=== PATIENT | male | born 1985 ===

== ENCOUNTER 2017-08-25 12:08 | Emergency (ER) | payer MEDICAID ==
[2017-08-25 12:17] VITALS: BMI 28.2
[2017-08-25 12:19] VITALS: BP 129/87; PULSE 82; RESP 16; TEMP 98.5; O2SAT 100
--- NOTE | 2017-08-25 13:13 | ED PDOC ---
HPI: Back Time Seen by Provider: 08/25/17 12:51 Chief Complaint (Nursing): Back Pain Chief Complaint (Provider): lower back pain History Per: Patient History/Exam Limitations: no limitations Onset/Duration Of Symptoms: Days (x 4) Current Symptoms Are (Timing): Still Present Additional Complaint(s): Sylvester is a 32 y/o male who presents to the ED complaining of low back pain that started Wednesday night. Patient states that on Wednesday night, he got a sharp pain in his lower back that went away eventually, but when he woke up on Wednesday he couldn't get out of bed due to pain. He denies and injury or trauma. Also denies and numbness or tingling. Patient lifts objects at work but says he doesn 't lift anything over 30 lbs. He has been taking Tylenol for the pain. PMD: None Past Medical History Reviewed: Historical Data, Nursing Documentation, Vital Signs Vital Signs: Last Vital Signs Temp 98.5 F 08/25/17 12:15 Pulse 82 08/25/17 12:15 Resp 16 08/25/17 12:15 BP 129/87 08/25/17 12:15 Pulse Ox 100 08/25/17 12:15 - Medical History PMH: No Chronic Diseases Denies: Chronic Kidney Disease - Family History Family History: States: Unknown Family Hx - Immunization History Hx Tetanus Toxoid Vaccination: No Hx Influenza Vaccination: No Hx Pneumococcal Vaccination: No - Home Medications Home Medications: Ambulatory Orders Medication Instructions Recorded Cyclobenzaprine [Cyclobenzaprine 10 mg PO BID PRN #10 tab 05/19/16 HCl] Naproxen [Naprosyn] 500 mg PO Q12 PRN #20 tablet 05/19/16 oxyCODONE/Acetaminophen [Percocet 1 tab PO QID PRN #20 tab 05/20/16 5/325 mg Tab] Cyclobenzaprine [Flexeril] 10 mg PO TID #27 tab 08/25/17 Naproxen [Naprosyn] 500 mg PO BID #40 tablet 08/25/17 - Allergies Allergies/Adverse Reactions: Allergies Allergy/AdvReac Type Severity Reaction Status Date / Time No Known Allergies Allergy Verified 08/25/17 12:21 Review of Systems ROS Statement: Except As Marked, All Systems Reviewed And Found Negative Musculoskeletal: Positive for: Back Pain (lower) Neurological: Negative for: Numbness, Other (tingling) Physical Exam - Reviewed Nursing Documentation Reviewed: Yes Vital Signs Reviewed: Yes - Physical Exam Appears: Positive for: Well, Non-toxic, No Acute Distress Skin: Positive for: Normal Color, Warm, Dry Cardiovascular/Chest: Positive for: Regular Rate, Rhythm Respiratory: Positive for: Normal Breath Sounds Back: Positive for: Vertebral Tenderness (center line tenderness L4-L5) Extremity: Positive for: Normal ROM (knees and legs barely over 30 degrees) Neurologic/Psych: Positive for: Alert, Oriented. Negative for: Motor/Sensory Deficits - ECG O2 Sat by Pulse Oximetry: 100 (RA) Pulse Ox Interpretation: Normal - Other Rad BACK X-Ray: Interpreted by Me, Viewed By Me X-Ray Interpretation: Apparent misalignment at L5-L6 Medical Decision Making Medical Decision Making: Time: 13:06 Initial Impression: Low Back Pain Initial Plan: --XR Spine Entire 2-3 Views --Flexeril 10mg PO --Toradol 60mg IM --Tylenol 650mg PO Scribe Attestation: Documented by Brian Ritter acting as a scribe for Fausto Ty PA-C MD Scribe Attestation: All medical record entries made by the Scribe were at my direction and personally dictated by me. I have reviewed the chart and agree that the record accurately reflects my personal performance of the history, physical exam, medical decision making, and the department course for this patient. I have also personally directed, reviewed, and agree with the discharge instructions and disposition. Disposition - Clinical Impression Clinical Impression: Lower back pain, Back pain, Acute back pain, Musculoskeletal pain - Patient ED Disposition Is Patient to be Admitted: No Doctor Will See Patient In The: Office Counseled Patient/Family Regarding: Studies Performed, Diagnosis, Need For Followup, Rx Given - Disposition Referrals: Serg Rodriguez MD [Staff Provider] - Disposition: Routine/Home Disposition Time: 15:37 Condition: GOOD Prescriptions: Cyclobenzaprine [Flexeril] 10 mg PO TID #27 tab Naproxen [Naprosyn] 500 mg PO BID #40 tablet Forms: [employer] ([place])
--- NOTE | 2017-08-25 19:21 | RAD ---
PROCEDURE: Radiographs of the Lumbar Spine. HISTORY: CENTERLINE PAIN COMPARISON: Abdomen and pelvis CT examination 05/19/2016. FINDINGS: BONES: There is straightening of the lumbar curvature without fracture or spondylolisthesis identified. No destructive bony lesion identified. The lumbar vertebral body heights appear within normal limits though minimal anterior wedging of the T12 vertebral body representing chronic fracture as seen in prior and pelvis CT 05/19/2016. . Disc height loss at L4-5 and L5-S1 indicating degenerative disc disease. DISC SPACES: As above OTHER FINDINGS: None. IMPRESSION: Straightened lumbar curvature. Degenerative disc changes L4-5 and L5-S1. Chronic limited fracture T12, indeterminate age.
== END 2017-08-25 16:37 | disposition home or self-care (01) ==
LOC: H.ER 12:08
DX: M54.5 Low back pain (principal); M51.37 Other intervertebral disc degeneration, lumbosacral region
CPT/HCPCS: 72100; 96372; 99282; J1885

== ENCOUNTER 2018-02-12 13:16 | Emergency (ER) | payer SELFPAY ==
[2018-02-12 13:17] VITALS: BMI 28.2
[2018-02-12 13:45] VITALS: BP 131/69; PULSE 87; RESP 18; TEMP 98.2; O2SAT 97
--- NOTE | 2018-02-12 14:29 | ED PDOC ---
HPI: General Adult Time Seen by Provider: 02/12/18 13:46 Chief Complaint (Nursing): Abdominal Pain Chief Complaint (Provider): Groin Pain History Per: Patient History/Exam Limitations: no limitations Onset/Duration Of Symptoms: Days (x14) Current Symptoms Are (Timing): Still Present Additional Complaint(s): Sylvester Keith is a 32 year old male with no past medical history who is presenting to the ED for evaluation of left groin pain radiating to the testicle, onset 2 weeks ago. Patient states that pain has not worsened but the persistence of pain prompted his ED visit. He reports that pain worsens with movement, sneezing, and lifting objects. He states that the pain, when present, is a 9/10 and reports taking Tylenol with no relief of symptoms. Patient denies taking any medications today and also denies any fevers, chills, nausea, vomiting, diarrhea, urinary symptoms, back pain, flank pain, cough, shortness or breath, or penile discharge. PMD: none provided Past Medical History Reviewed: Historical Data, Nursing Documentation, Vital Signs Vital Signs: Last Vital Signs Temp 98.2 F 02/12/18 13:42 Pulse 87 02/12/18 13:42 Resp 18 02/12/18 13:42 BP 131/69 02/12/18 13:42 Pulse Ox 97 02/12/18 13:42 - Medical History PMH: No Chronic Diseases - Surgical History Surgical History: No Surg Hx - Family History Family History: States: Unknown Family Hx - Social History Current smoker - smoking cessation education provided: Yes Alcohol: Social Drugs: Denies - Home Medications Home Medications: Ambulatory Orders Medication Instructions Recorded Cyclobenzaprine [Cyclobenzaprine 10 mg PO BID PRN #10 tab 05/19/16 HCl] RX: Naproxen [Naprosyn] 500 mg PO Q12 PRN #20 tablet 05/19/16 oxyCODONE/Acetaminophen [Percocet 1 tab PO QID PRN #20 tab 05/20/16 5/325 mg Tab] Naproxen [Naprosyn] 500 mg PO BID #40 tablet 08/25/17 RX: Cyclobenzaprine [Flexeril] 10 mg PO TID #27 tab 08/25/17 Cephalexin [Keflex] 500 mg PO TID #21 capsule 09/29/18 RX: Ibuprofen [Motrin Tab] 800 mg PO Q8 PRN #21 tab 02/12/18 Sulfamethoxazole/Trimethoprim 1 tab PO BID #14 tab 02/12/18 [Bactrim DS 800 mg-160 mg] - Allergies Allergies/Adverse Reactions: Allergies Allergy/AdvReac Type Severity Reaction Status Date / Time No Known Allergies Allergy Verified 08/25/17 12:21 Review of Systems ROS Statement: Except As Marked, All Systems Reviewed And Found Negative Constitutional: Negative for: Fever, Chills Respiratory: Negative for: Cough, Shortness of Breath Gastrointestinal: Negative for: Nausea, Vomiting, Diarrhea Genitourinary Male: Positive for: Other (groin pain). Negative for: Dysuria, Frequency, Incontinence, Hematuria, Penile Discharge Musculoskeletal: Negative for: Back Pain, Other (flank pain) Physical Exam - Reviewed Nursing Documentation Reviewed: Yes Vital Signs Reviewed: Yes - Physical Exam Comments: GENERAL APPEARANCE: Patient is awake, alert, oriented x 3, in no acute distress distress. SKIN: Warm, dry; (-) cyanosis. ENMT: Mucous membranes moist. Airway patent, (-) stridor. NECK: Supple, FROM CHEST AND RESPIRATORY: (-) rales, (-) rhonchi, (-) wheezes; breath sounds equal bilaterally. Respirations even and nonlabored, speaking in full sentences. HEART AND CARDIOVASCULAR: (-) irregularity ABDOMEN AND GI: Soft, bowel sounds active x4 (-) distention. (-) tenderness. (-) guarding, (-) rebound, (-) CVA tenderness. EXTREMITIES: (-) deformity MALE GENITOURINARY: (+) circumcised male, (+) normal external genitalia, (+) diffuse tenderness to left lower groin and lateral aspect of left testicle, (+) Faint erythema to the lateral left testicle, (+) 1 cm X 1 cm area of induration to left groin fold immediately next to left side of scrotum, (-) penile discharge, (-) rash or ulcers. Right testicle nontender. (-) scrotal swelling. Pump Tender: Nurse Tatum NEURO AND PSYCH: Mental status as above; (-) focal findings (-) facial asymmetry (-) aphasia. Gait: steady. Speech: clear. - Laboratory Results Result Diagrams: 02/12/18 14:26 02/12/18 14:26 Urine dip results: Negative for: Leukocyte Esterase, Blood, Nitrate, Ketones, Glucose, Bilirubin, Protein - ECG O2 Sat by Pulse Oximetry: 97 (RA) Pulse Ox Interpretation: Normal Medical Decision Making Medical Decision Making: Time: 14:15 Impression: Acute groin and testicular pain Plan: --CMP --ED Urine Dipstick --CBC --Chlamydia/GC RNA, TMA --Toradol 30 mg IVP --Ultrasound Testes --CT abd/pel with IV contrast 1440 Udip reviewed and unremarkable. 1515 Labs reviewed and grossly unremarkable. [address] Abd/Pelvis: FINDINGS: LOWER THORAX: Bibasilar atelectasis. Heart size normal. No focal consolidation or pleural effusion. LIVER: Mild hepatic steatosis. No gross lesion or ductal dilatation. GALLBLADDER AND BILE DUCTS: Unremarkable. PANCREAS: Unremarkable. No gross lesion or ductal dilatation. SPLEEN: Unremarkable. ADRENALS: Unremarkable. No mass. KIDNEYS AND URETERS: Unremarkable. No hydronephrosis. No solid mass. VASCULATURE: Unremarkable. No aortic aneurysm. BOWEL: Unremarkable. No obstruction. No gross mural thickening. APPENDIX: Normal appendix. PERITONEUM: Very small fat containing right inguinal hernia. No free fluid. No free air. LYMPH NODES: Unremarkable. No enlarged lymph nodes. BLADDER: Unremarkable. REPRODUCTIVE: Unremarkable. BONES: No acute fracture. OTHER FINDINGS: None. IMPRESSION: Very small fat containing right inguinal hernia. No acute abdominal pelvic pathology. 1705 Testicular Ultrasound: FINDINGS: RIGHT TESTICLE: Measures 4.0 x 2.4 x 1.8 cm. Normal echotexture and flow. RIGHT EPIDIDYMIS: Epididymal head measures 1.0 x 0.9 x 1.0 cm. Grossly unremarkable appearance with normal flow. LEFT TESTICLE: Measures 4.2 x 2.2 x 1.8 cm. Normal echotexture and flow. LEFT EPIDIDYMIS: Epididymal head measures 0.8 x 0.8 x 0.6 cm. Grossly unremarkable appearance with normal flow. HYDROCELE: None. VARICOCELE: None. OTHER FINDINGS: In the palpable area on the left, there is a nonspecific hypoechoic 2.2 x 0.5 x 1.3 cm nonvascular area. IMPRESSION: No evidence of testicular torsion. In the palpable area in the left, there is a nonspecific avascular hypoechoic area measuring 2.2 x 0.5 x 1.3 cm. Due to suspicion of possible early abscess/cellulitis, Keflex and Bactrim PO ordered. 1730 On re-evaluation, patient reports improvement of symptoms. On exam, patient remains AAOx3, in no acute distress. Lungs clear to auscultation, cardiac RRR, abdomen soft, non-tender, repeat neuro exam shows no focal findings. Vitals stable. Lab/Diagnostic results d/w the patient in great detail. Diagnosis of groin pain, possible early abscess d/w the patient. Based on history, exam and diagnostic results, plan will be for outpatient follow up. Advised to return to ED in two days if symptoms do no improve. Patient instructed to follow-up with pmd / referral provided / the clinic in 1- 2 days without fail. Advised to take medication as prescribed. Return to the emergency room at any time for any new or worsening symptoms. Patient states he fully agrees with and understands discharge instructions. States that he agrees with the plan and disposition. Verbalized and repeated discharge instructions and plan. I have given the patient opportunity to ask any additional questions. Scribe Attestation: Documented by Nadia Espinoza, acting as a scribe for Anny Soto PA-C. Provider Scribe Attestation: All medical record entries made by the Scribe were at my direction and personally dictated by me. I have reviewed the chart and agree that the record accurately reflects my personal performance of the history, physical exam, medical decision making, and the department course for this patient. I have also personally directed, reviewed, and agree with the discharge instructions and disposition. Disposition - Clinical Impression Clinical Impression: Groin pain, Abscess of groin - Patient ED Disposition Is Patient to be Admitted: No Counseled Patient/Family Regarding: Studies Performed, Diagnosis, Need For Followup, Rx Given - Disposition Referrals: [facility] [Outside] Sam Coombs MD [Staff Provider] - Disposition: Routine/Home Disposition Time: 17:30 Condition: STABLE Additional Instructions: The emergency medical care you received today was directed at your acute symptoms. If you were prescribed any medication, please fill it and take as directed. It may take several days for your symptoms to resolve. Return to the Emergency Department if your symptoms worsen, do not improve, or if you have any other problems. Please contact your doctor in 2 days for re-evaluation and follow up / or call one of the physicians/clinics you have been referred to that are listed on the Patient Visit Information form that is included in your discharge packet. Bring any paperwork you were given at discharge with you along with any medications you are taking to your follow up visit. Our treatment cannot replace ongoing medical care by a primary care provider (PCP) outside of the emergency department. Prescriptions: Cephalexin [Keflex] 500 mg PO TID #21 capsule RX: Ibuprofen [Motrin Tab] 800 mg PO Q8 PRN #21 tab PRN Reason: Pain, Moderate (4-7) Sulfamethoxazole/Trimethoprim [Bactrim DS 800 mg-160 mg] 1 tab PO BID #14 tab Instructions: Cellulitis and Erysipelas (Skin Infections), Boil, Skin Abscess Forms: [employer] (Occitan), [facility] ED School/Work Excuse Print Language: ROMANIAN - POA Present On Arrival: None Results - Lab Results Lab Results: 02/12/18 02/12/18 14:26 14:26 WBC 9.7 RBC 4.26 L Hgb 13.6 Hct 39.8 MCV 93.4 MCH 31.9 H MCHC 34.2 RDW 13.3 Plt Count 239 MPV 8.2 Neut % (Auto) 79.0 H Lymph % (Auto) 12.1 L Williamson % (Auto) 8.2 Eos % (Auto) 0.5 Baso % (Auto) 0.2 Neut # (Auto) 7.7 H Lymph # (Auto) 1.2 Williamson # (Auto) 0.8 Eos # (Auto) 0.1 Baso # (Auto) 0.0 Sodium 141 Potassium 4.1 Chloride 103 Carbon Dioxide 29 Anion Gap 13 BUN 10 Creatinine 0.8 Est GFR ( Amer) > 60 Est GFR (Non-Af Amer) > 60 Random Glucose 103 Calcium 9.6 Total Bilirubin 0.4 AST 47 ALT 27 Alkaline Phosphatase 33 L Total Protein 8.2 Albumin 4.4 Globulin 3.8 Albumin/Globulin Ratio 1.2
[2018-02-12 15:01] LABS: BASO % 0.2 % (0.0-2.0); EOS # 0.1 K/uL (0.0-0.7); EOS % 0.5 % (0.0-4.0); HEMOGLOBIN 13.6 g/dL (12.0-18.0); LYMPH # 1.2 K/uL (1.0-4.3); LYMPH % 12.1 % (20.0-40.0); MEAN CELL VOLUME 93.4 fl (80.0-94.0); MEAN CORPUSCULAR HEMOGLOBIN 31.9 pg (27.0-31.0); MEAN CORPUSCULAR HGB CONC 34.2 g/dL (33.0-37.0); MEAN PLATELET VOLUME 8.2 fl (7.2-11.7); MONO # 0.8 K/uL (0.0-0.8); MONO % 8.2 % (0.0-10.0); NEUT # 7.7 K/uL (1.8-7.0); RBC 4.26 Mil/uL (4.40-5.90); RED CELL DISTRIBUTION WIDTH 13.3 % (11.5-14.5); WHITE BLOOD COUNT 9.7 K/uL (4.8-10.8)
[2018-02-12 15:08] LABS: ALB/GLOB RATIO 1.2 (1.0-2.1); ALBUMIN 4.4 g/dL (3.5-5.0); BLOOD UREA NITROGEN 10 mg/dl (9-20); CALCIUM 9.6 mg/dL (8.4-10.2); GFR NON-AFRICAN AMERICAN > 60
[2018-02-12 15:17] LABS: ALT/SGPT 27 U/L (21-72); AST/SGOT 47 U/L (17-59)
[2018-02-12] MEDS ORDERED: Iohexol 300 100 ML IJ ONE (15:40)
[2018-02-12] MEDS ORDERED: Sodium Chloride 0.9% 400 ML IV ONE (15:41)
--- NOTE | 2018-02-12 16:14 | CT ---
Date of service: 02/12/2018 PROCEDURE: CT Abdomen and Pelvis with contrast HISTORY: r/o hernia, groin pain COMPARISON: CT scan of the chest, abdomen and pelvis dated 05/19/2016. TECHNIQUE: Contrast dose: 95 mL Omnipaque 300 Radiation dose: Total exam DLP = 551.9 mGy-cm. This CT exam was performed using one or more of the following dose reduction techniques: Automated exposure control, adjustment of the mA and/or kV according to patient size, and/or use of iterative reconstruction technique. FINDINGS: LOWER THORAX: Bibasilar atelectasis. Heart size normal. No focal consolidation or pleural effusion. LIVER: Mild hepatic steatosis. No gross lesion or ductal dilatation. GALLBLADDER AND BILE DUCTS: Unremarkable. PANCREAS: Unremarkable. No gross lesion or ductal dilatation. SPLEEN: Unremarkable. ADRENALS: Unremarkable. No mass. KIDNEYS AND URETERS: Unremarkable. No hydronephrosis. No solid mass. VASCULATURE: Unremarkable. No aortic aneurysm. BOWEL: Unremarkable. No obstruction. No gross mural thickening. APPENDIX: Normal appendix. PERITONEUM: Very small fat containing right inguinal hernia. No free fluid. No free air. LYMPH NODES: Unremarkable. No enlarged lymph nodes. BLADDER: Unremarkable. REPRODUCTIVE: Unremarkable. BONES: No acute fracture. OTHER FINDINGS: None. IMPRESSION: Very small fat containing right inguinal hernia. No acute abdominal pelvic pathology.
--- NOTE | 2018-02-12 17:01 | US ---
Date of service: 02/12/2018 HISTORY: left groin/testicle pain TECHNIQUE: Realtime sonography through the scrotum with color and doppler flow. COMPARISON: None Available. FINDINGS: RIGHT TESTICLE: Measures 4.0 x 2.4 x 1.8 cm. Normal echotexture and flow. RIGHT EPIDIDYMIS: Epididymal head measures 1.0 x 0.9 x 1.0 cm. Grossly unremarkable appearance with normal flow. LEFT TESTICLE: Measures 4.2 x 2.2 x 1.8 cm. Normal echotexture and flow. LEFT EPIDIDYMIS: Epididymal head measures 0.8 x 0.8 x 0.6 cm. Grossly unremarkable appearance with normal flow. HYDROCELE: None. VARICOCELE: None. OTHER FINDINGS: In the palpable area on the left, there is a nonspecific hypoechoic 2.2 x 0.5 x 1.3 cm nonvascular area. IMPRESSION: No evidence of testicular torsion. In the palpable area in the left, there is a nonspecific avascular hypoechoic area measuring 2.2 x 0.5 x 1.3 cm.
[2018-02-12] MEDS ORDERED: Tmp-Smz 800 mg-160 mg DS Tab PO STA (17:08)
[2018-02-12] MEDS ORDERED: Tmp-Smz 800 mg-160 mg DS Tab ONE (17:16)
== END 2018-02-12 17:58 | disposition home or self-care (01) ==
LOC: H.ER 13:16
DX: L02.214 Cutaneous abscess of groin (principal); R10.30 Lower abdominal pain, unspecified; F17.200 Nicotine dependence, unspecified, uncomplicated
CPT/HCPCS: 74177; 80053; 85025; 87491; 87591; 93975; 96374; 99283; J1885; Q9967

== ENCOUNTER 2018-03-30 21:11 | Emergency (ER) | payer OTHER ==
[2018-03-30 21:12] VITALS: BMI 28.2
[2018-03-30 21:30] VITALS: BP 138/84; PULSE 85; RESP 17; TEMP 97.6; O2SAT 98
[2018-03-30] MEDS ORDERED: Tdap Vaccine 0.5 ml Vial (10-64 yrs) IM ONE ×2 (21:39→22:17)
--- NOTE | 2018-03-30 21:48 | ED PDOC ---
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 Notes he was able to remove the intact nail himself from his foot and boot, and denies other injury. Tetanus not up to date. PMD: none provided Past Medical History Reviewed: Historical Data, Nursing Documentation, Vital Signs Vital Signs: Last Vital Signs Temp 97.6 F 03/30/18 21:26 Pulse 85 03/30/18 21:26 Resp 17 03/30/18 21:26 BP 138/84 03/30/18 21:26 Pulse Ox 98 03/30/18 21:26 - Medical History PMH: No Chronic Diseases - Surgical History Surgical History: No Surg Hx - Family History Family History: States: Unknown Family Hx - Immunization History Hx Tetanus Toxoid Vaccination: No - Home Medications Home Medications: Ambulatory Orders Medication Instructions Recorded Cyclobenzaprine [Cyclobenzaprine 10 mg PO BID PRN #10 tab 05/19/16 HCl] RX: Naproxen [Naprosyn] 500 mg PO Q12 PRN #20 tablet 05/19/16 oxyCODONE/Acetaminophen [Percocet 1 tab PO QID PRN #20 tab 05/20/16 5/325 mg Tab] Naproxen [Naprosyn] 500 mg PO BID #40 tablet 08/25/17 RX: Cyclobenzaprine [Flexeril] 10 mg PO TID #27 tab 08/25/17 Cephalexin [Keflex] 500 mg PO TID #21 capsule 02/12/18 RX: Ibuprofen [Motrin Tab] 800 mg PO Q8 PRN #21 tab 02/12/18 Sulfamethoxazole/Trimethoprim 1 tab PO BID #14 tab 02/12/18 [Bactrim DS 800 mg-160 mg] Amoxicillin/Clavulanate [Augmentin 1 tab PO BID #20 tab 03/30/18 875 MG-125 MG] RX: Bacitracin Ointment 1 applic TOP BID #1 tube 03/30/18 [Bacitracin] RX: Ibuprofen [Motrin Tab] 800 mg PO Q8 PRN #21 tab 03/30/18 - Allergies Allergies/Adverse Reactions: Allergies Allergy/AdvReac Type Severity Reaction Status Date / Time No Known Allergies Allergy Verified 08/25/17 12:21 Review of Systems ROS Statement: Except As Marked, All Systems Reviewed And Found Negative Musculoskeletal: Positive for: Foot Pain (localized pain to bottom of left foot) Physical Exam - Reviewed Nursing Documentation Reviewed: Yes Vital Signs Reviewed: Yes - Physical Exam Comments: GENERAL APPEARANCE: Patient is awake, alert, oriented x 3, uncomfortable appearing. Limping in ED. SKIN: Warm, dry; (-) cyanosis. NECK: Supple, FROM ENT: Mucus membranes moist. Airway patent, (-) stridor. LEFT LOWER EXTREMITY: (+) 3mm x 2mm stellate puncture wound to sole of midfoot, (+) surrounding erythema, (-) active bleeding, (-) pus drainage, (-) edema. Full ROM of foot and ankle. Mild warmth immediately surrounding puncture wound. Sensation and cap refill intact. (+) pulses. CARDIOVASCULAR: RRR RESPIRATORY: lungs clear to auscultation (-) rales (-) rhonchi (-) wheezing NEUROLOGIC: (+) distal sensation. - ECG O2 Sat by Pulse Oximetry: 98 (RA) Pulse Ox Interpretation: Normal Medical Decision Making Medical Decision Making: Initial Impression: puncture wound to left foot Time: 2134 Initial Plan: --Left foot XR --Tetanus booster --Podiatry consult --Toradol 30mg IM 2149 Spoke with podiatry resident Cherry Mcdaniel who is agreeable to evaluation in ED. 2224 Podiatry at bedside- see consult note. Recommends treatment with Augmentin PO. Augmentin PO ordered. Betadine dressing and surgical shoe placed by podiatry. Patient educated on care. Foot XR: (-) fracture (-) FB as read by Brittany WARREN 2244 On exam, patient remains AAOx3, in no acute distress. Lungs clear to auscultation, cardiac RRR, repeat neuro exam shows no focal findings. Vitals stable. Lab/Diagnostic results d/w the patient in great detail. Diagnosis of puncture wound of foot d/w the patient. Based on history, exam and diagnostic results, plan will be for outpatient follow up with podiatry. Patient instructed to follow-up with pmd / referral provided / the clinic in 1- 2 days without fail. Advised to take medication as prescribed. Return to the emergency room at any time for any new or worsening symptoms. Patient states he fully agrees with and understands discharge instructions. States that he agrees with the plan and disposition. Verbalized and repeated discharge instructions and plan. I have given the patient opportunity to ask any additional questions. Scribe Attestation: Documented by Mireya Belcher, acting as a scribe for Anny Soto PA-C. Provider Scribe Attestation: All medical record entries made by the Scribe were at my direction and personally dictated by me. I have reviewed the chart and agree that the record accurately reflects my personal performance of the history, physical exam, medical decision making, and the department course for this patient. I have also personally directed, reviewed, and agree with the discharge instructions and disposition. Disposition - Clinical Impression Clinical Impression: Puncture wound of foot - Patient ED Disposition Is Patient to be Admitted: No Counseled Patient/Family Regarding: Studies Performed, Diagnosis, Need For Followup, Rx Given - Disposition Referrals: Steph Quigley DPM [Staff Provider] - Podiatry Clinic [Outside] Disposition: Routine/Home Disposition Time: 23:00 Condition: STABLE Additional Instructions: FOLLOW UP WITH PODIATRY WITHIN THE WEEK. TAKE ANTIBIOTICS PRESCRIBED. The emergency medical care you received today was directed at your acute sy mptoms. If you were prescribed any medication, please fill it and take as directed. It may take several days for your symptoms to resolve. Return to the Emergency Department if your symptoms worsen, do not improve, or if you have any other problems. Please contact your doctor in 2 days for re-evaluation and follow up / or call one of the physicians/clinics you have been referred to that are listed on the Patient Visit Information form that is included in your discharge packet. Bring any paperwork you were given at discharge with you along with any medications you are taking to your follow up visit. Our treatment cannot replace ongoing medical care by a primary care provider (PCP) outside of the emergency department. Prescriptions: Amoxicillin/Clavulanate [Augmentin 875 MG-125 MG] 1 tab PO BID #20 tab RX: Bacitracin Ointment [Bacitracin] 1 applic TOP BID #1 tube RX: Ibuprofen [Motrin Tab] 800 mg PO Q8 PRN #21 tab PRN Reason: Pain, Moderate (4-7) Instructions: Skin Abrasions, Wound Care Forms: [employer] (Iranian), [facility] ED School/Work Excuse Print Language: [place] - POA Present On Arrival: None
--- NOTE | 2018-03-30 21:54 | CP.PCM.CON ---
History of Present Illness - History of Present Illness History of Present Illness: Podiatry consult note for Dr. 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 He reports localized 10/10 pain to the affected area, but has not taken any meds. Notes he was able to remove the intact nail himself from his foot and boot, and denies other injury. Denies any other pedal complains. Does not remember the last time he saw a PCP. states he walked to the hospital himself after the injury. States it was bleeding initially, however it stopped after. Tetanus not up to date. PMD: none provided Social history: smokes cigarettes 1/2 ppd Past Patient History - Infectious Disease Hx of Infectious Diseases: None - Past Social History Smoking Status: Light Smoker < 10 Cigarettes Daily - CARDIAC Hx Cardiac Disorders: No - PULMONARY Hx Respiratory Disorders: No - NEUROLOGICAL Hx Neurological Disorder: No - HEENT Hx HEENT Problems: No - RENAL Hx Chronic Kidney Disease: No - ENDOCRINE/METABOLIC Hx Endocrine Disorders: No - HEMATOLOGICAL/ONCOLOGICAL Hx Blood Disorders: No - INTEGUMENTARY Hx Dermatological Problems: No - MUSCULOSKELETAL/RHEUMATOLOGICAL Hx Musculoskeletal Disorders: No - GASTROINTESTINAL Hx Gastrointestinal Disorders: No - GENITOURINARY/GYNECOLOGICAL Hx Genitourinary Disorders: No - PSYCHIATRIC Hx Psychophysiologic Disorder: No Hx Substance Use: No - SURGICAL HISTORY Hx Surgeries: No - ANESTHESIA Hx Anesthesia: No Meds Home Medications: Home Medication List Medication Instructions Recorded Confirmed Type Amoxicillin/Clavulanate [Augmentin 1 tab PO BID #20 tab 03/30/18 Rx 875 MG-125 MG] Bacitracin Ointment [Bacitracin] 1 applic TOP BID #1 tube 03/30/18 Rx Ibuprofen [Motrin Tab] 800 mg PO Q8 PRN #21 tab 03/30/18 Rx Allergies/Adverse Reactions: Allergies Allergy/AdvReac Type Severity Reaction Status Date / Time No Known Allergies Allergy Verified 08/25/17 12:21 - Medications Medications: Current Medications Ketorolac Tromethamine (Toradol) 30 mg IM ONCE ONE Stop: 03/30/18 21:52 Physical Exam - Constitutional Appears: Well, Non-toxic - Head Exam Head Exam: ATRAUMATIC - Extremities Exam Additional comments: Left lower extremity exam: vascular: dp/pt 2/4, CFT <3 secs x 10, TG warm to warm, minimal edema noted on the dorsum of the foot, minimal erythema noted on the dorsum of foot and distal leg. derm: .2 cm open lesion from the puncture wound plantar aspect of the medial midfoot , no active drainage, upon expression sanguinous drainage, no malodor, no purulence, no other open lesions ortho: pain upon palpation of the left foot neuro: protective sensation intact via ipswich 08/18 - Neurological Exam Neurological exam: Alert, Oriented x3 - Psychiatric Exam Psychiatric exam: Normal Affect - Skin Skin Exam: Normal Color Results - Vital Signs Recent Vital Signs: Last Vital Signs Temp 97.6 F 03/30/18 21:26 Pulse 85 03/30/18 21:26 Resp 17 03/30/18 21:26 BP 138/84 03/30/18 21:26 Pulse Ox 98 03/30/18 21:51 Assessment & Plan - Assessment and Plan (Free Text) Assessment: 32 yo male with no pmhx seen and evaluated for left foot puncture wound Plan: Patient seen and evaluated History and plan discussed in detail with Dr. Quigley tetanus booster given by the PA x-rays reviewed; no acute osseous abnormality left foot dressed with betadine DSD surgical shoe dispsnsed; WBAT educated on signs and symtpoms of an infection and advised to return to the ED if needed augmentin 875 mg bid x 10 days rx Patient showed verbal understanding Patient to follow up in Dr Figueroa office or podiatry clinic within a week Patient showed verbal understanding
[2018-03-30] MEDS ORDERED: Amoxicillin-Clav 875-125 mg Tab PO STA (22:39)
[2018-03-30] MEDS ORDERED: Amoxicillin-Clav 875-125 mg Tab PO ONE (23:08)
--- NOTE | 2018-03-31 10:43 | RAD ---
Date of service: 03/30/2018 PROCEDURE: Left Foot Radiographs. HISTORY: r/o FB, puncture wound COMPARISON: None. FINDINGS: BONES: Bone alignment and mineralization are normal. There is no acute displaced fracture or bone destruction. JOINTS: Normal. SOFT TISSUES: There is soft tissue swelling in the plantar foot on frontal and lateral projection. There artifacts overlying the heel on the oblique projection and definite exclusion of radiopaque foreign body is difficult. OTHER FINDINGS: None. IMPRESSION: No acute fracture or dislocation. Evaluation of foreign body in the oblique projection is difficult due to overlying artifacts. No radiopaque foreign body on the frontal and lateral projections.
== END 2018-03-30 23:00 | disposition home or self-care (01) ==
LOC: H.ER 21:11
DX: S91.332A Puncture wound without foreign body, left foot, initial encounter (principal); W26.8XXA Contact with other sharp object(s), not elsewhere classified, initial encounter; Y99.0 Civilian activity done for income or pay
CPT/HCPCS: 73630; 90471; 90715; 96372; 99283; J1885

== ENCOUNTER 2018-04-05 19:29 | Emergency (ER) | payer OTHER ==
[2018-04-05 19:29] VITALS: BMI 28.2
[2018-04-05 20:03] VITALS: BP 115/64; PULSE 87; RESP 18; TEMP 97.9; O2SAT 97
--- NOTE | 2018-04-05 21:41 | ED PDOC ---
HPI: Wound Care - HPI Time Seen by Provider: 04/05/18 20:37 Chief Complaint (Nursing): Wound Check Chief Complaint (Provider): Wound Check History Per: Patient Exam Limitations: no limitations Onset/Duration Of Symptoms: Days (x6 days) Current Symptoms Are (Timing): Still Present Additional Complaint(s): Sylvester Keith is a 32 year old male with no past medical history, who presents to the emergency department for reevaluation of left foot pain after stepping on a nail at work, onset x6 days ago. Patient states he was discharged with motrin and antibiotics after being seen here in the ED on 03/30/18. He reports he has not taken any medications because he was unable to purchase them because he does not have insurance. Patient returned to work yesterday and that the pain in the left foot became worse to the point of having to leave work today. He denies having any fevers, chills, or night sweats. PMD: No provider Past Medical History Reviewed: Historical Data, Nursing Documentation, Vital Signs Vital Signs: Last Vital Signs Temp 97.9 F 04/05/18 19:51 Pulse 87 04/05/18 19:51 Resp 18 04/05/18 19:51 BP 115/64 04/05/18 19:51 Pulse Ox 97 04/05/18 19:51 - Medical History PMH: No Chronic Diseases Denies: Chronic Kidney Disease - Surgical History Surgical History: No Surg Hx - Family History Family History: States: Unknown Family Hx - Immunization History Hx Tetanus Toxoid Vaccination: No Hx Influenza Vaccination: No Hx Pneumococcal Vaccination: No - Home Medications Home Medications: Ambulatory Orders Medication Instructions Recorded Cyclobenzaprine [Cyclobenzaprine 10 mg PO BID PRN #10 tab 05/19/16 HCl] RX: Naproxen [Naprosyn] 500 mg PO Q12 PRN #20 tablet 05/19/16 oxyCODONE/Acetaminophen [Percocet 1 tab PO QID PRN #20 tab 05/20/16 5/325 mg Tab] Naproxen [Naprosyn] 500 mg PO BID #40 tablet 08/25/17 RX: Cyclobenzaprine [Flexeril] 10 mg PO TID #27 tab 08/25/17 Cephalexin [Keflex] 500 mg PO TID #21 capsule 02/12/18 RX: Ibuprofen [Motrin Tab] 800 mg PO Q8 PRN #21 tab 02/12/18 Sulfamethoxazole/Trimethoprim 1 tab PO BID #14 tab 02/12/18 [Bactrim DS 800 mg-160 mg] Amoxicillin/Clavulanate [Augmentin 1 tab PO BID #20 tab 03/30/18 875 MG-125 MG] RX: Bacitracin Ointment 1 applic TOP BID #1 tube 03/30/18 [Bacitracin] RX: Ibuprofen [Motrin Tab] 800 mg PO Q8 PRN #21 tab 03/30/18 - Allergies Allergies/Adverse Reactions: Allergies Allergy/AdvReac Type Severity Reaction Status Date / Time No Known Allergies Allergy Verified 08/25/17 12:21 Review of Systems ROS Statement: Except As Marked, All Systems Reviewed And Found Negative Constitutional: Negative for: Fever, Chills, Sweats Musculoskeletal: Positive for: Foot Pain (left foot pain) Physical Exam - Reviewed Nursing Documentation Reviewed: Yes - Physical Exam Head Exam: Positive for: ATRAUMATIC, NORMOCEPHALIC Cardiovascular/Chest: Positive for: Regular Rate, Rhythm. Negative for: Murmur Respiratory: Positive for: Normal Breath Sounds. Negative for: Respiratory Distress Extremity: Positive for: Other (Plantar aspect of left foot no open wounds or ulcerations; lesions healing well; firm nodule noted in the area prior puncture no fluctuance; (-) erythema or purlent drainage) - ECG O2 Sat by Pulse Oximetry: 97 (RA) Pulse Ox Interpretation: Normal Medical Decision Making Medical Decision Making: Time: 21:00 Plan: --Podiatry consultation --Left foot x-ray --Motrin 600 mg PO Scribe Attestation: Documented by Azeem Morgan, acting as a scribe for Gregoria Browning PA-C. Provider Scribe Attestation: All medical record entries made by the Scribe were at my direction and personally dictated by me. I have reviewed the chart and agree that the record accurately reflects my personal performance of the history, physical exam, medical decision making, and the department course for this patient. I have also personally directed, reviewed, and agree with the discharge instructions and disposition. Disposition - Clinical Impression Clinical Impression: Encounter for wound re-check, Puncture wound of foot - Patient ED Disposition Is Patient to be Admitted: No Counseled Patient/Family Regarding: Studies Performed, Diagnosis, Need For Followup - Disposition Referrals: Podiatry Clinic [Outside] Disposition: Routine/Home Disposition Time: 22:30 Condition: STABLE Additional Instructions: Please take antibiotics as prescribed. Take Ibuprofen for pain. No weight bearing for the next 6 days. F/u in Podiatry clinic on Wednesday, 04/11 Forms: [employer] (Kiswahili), [facility] ED School/Work Excuse Print Language: [place]
--- NOTE | 2018-04-06 10:01 | RAD ---
Date of service: 04/05/2018 PROCEDURE: Left Foot Radiographs. HISTORY: pain after stepping on nail 6 days ago COMPARISON: None. FINDINGS: BONES: Normal. No fracture. JOINTS: Normal. SOFT TISSUES: Normal. OTHER FINDINGS: Os trigonum IMPRESSION: No fracture periosteal or cortical interruption. No radiopaque foreign body seen
--- NOTE | 2018-04-10 22:14 | CP.PCM.CON ---
History of Present Illness - History of Present Illness History of Present Illness: Podiatry consult note for Dr. 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 Patient was seen in the ED, and was prescribed Augmentin/clinic followup. Patient states he was unable to purchase the medications. Patient reports localized 10/10 pain to the affected area, but has not taken any meds. Patient states he was concerned so came to the ED. Patient was provided with a surgical shoe and crutches on previous visit, however, did not have either with him in ED. Denies any other pedal complains. PMD: none provided Social history: smokes cigarettes 1/2 ppd Review of Systems - Review of Systems All systems: reviewed and no additional remarkable complaints except Review of Systems: As per HPI Past Patient History - Infectious Disease Hx of Infectious Diseases: None - Past Social History Smoking Status: Light Smoker < 10 Cigarettes Daily - CARDIAC Hx Cardiac Disorders: No - PULMONARY Hx Respiratory Disorders: No - NEUROLOGICAL Hx Neurological Disorder: No - HEENT Hx HEENT Problems: No - RENAL Hx Chronic Kidney Disease: No - ENDOCRINE/METABOLIC Hx Endocrine Disorders: No - HEMATOLOGICAL/ONCOLOGICAL Hx Blood Disorders: No - INTEGUMENTARY Hx Dermatological Problems: No - MUSCULOSKELETAL/RHEUMATOLOGICAL Hx Musculoskeletal Disorders: No - GASTROINTESTINAL Hx Gastrointestinal Disorders: No - GENITOURINARY/GYNECOLOGICAL Hx Genitourinary Disorders: No - PSYCHIATRIC Hx Psychophysiologic Disorder: No Hx Substance Use: No - SURGICAL HISTORY Hx Surgeries: No - ANESTHESIA Hx Anesthesia: No Meds Allergies/Adverse Reactions: Allergies Allergy/AdvReac Type Severity Reaction Status Date / Time No Known Allergies Allergy Verified 08/25/17 12:21 Physical Exam - Constitutional Appears: Well, Non-toxic, No Acute Distress - Head Exam Head Exam: ATRAUMATIC, NORMOCEPHALIC - Extremities Exam Additional comments: Left lower extremity exam: vascular: dp/pt 2/4, CFT <3 secs x 10, TG warm to warm, minimal edema noted on the dorsum of the foot, minimal erythema noted at the closed puncture site area plantarly derm: hyperkeratotic lesion noted at the previous puncture wound site at the plantar aspect of the medial midfoot, no active drainage, no malodor, no purulence, no other open lesions ortho: pain upon palpation plantarly neuro: protective sensation intact via ipswich 08/18 - Neurological Exam Neurological exam: Alert, Oriented x3 - Psychiatric Exam Psychiatric exam: Normal Affect, Normal Mood Results - Vital Signs Recent Vital Signs: Last Vital Signs Temp 97.9 F 04/05/18 19:51 Pulse 87 04/05/18 19:51 Resp 18 04/05/18 19:51 BP 115/64 04/05/18 19:51 Pulse Ox 97 04/05/18 22:38 Assessment & Plan - Assessment and Plan (Free Text) Assessment: 32 yo male with no pmhx seen and re-evaluated for left foot puncture wound Plan: Patient seen and evaluated History and plan discussed in detail with Dr. Quigley x-rays reviewed: no acute osseous abnormality Aseptic debridement of hyperkeratotic lesion- no drainage expressed left foot dressed with betadine DSD surgical shoe dispense: patient advised to NWB at this time, crutches dispensed educated on signs and symtpoms of an infection and advised to return to the ED if needed augmentin 875 mg bid x 10 days rx - patient has previous Rx and strongly advised to purchase medication Patient showed verbal understanding Patient to follow up in podiatry clinic within a week Patient showed verbal understanding - Date & Time Date: 04/10/18 Time: :18
== END 2018-04-06 00:06 | disposition home or self-care (01) ==
LOC: H.ER 19:29
DX: M79.672 Pain in left foot (principal)